=== PATIENT | female | born 2000 | race Caucasian/White ===

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

== ENCOUNTER → 2018-04-29 | Outpatient (CLI) | payer OTHER ==
--- NOTE | 2018-05-02 10:35 | CPEEG ---
[f rep st] ELECTROENCEPHALOGRAM DATE OF STUDY: 05/02/2018 Date Of Study: April 29 Date of Interpretation: 05/02. INTERPRETATION: Normal EEG during wakefulness and sleep. There were no potentially epileptogenic ab normalities present in the recording. REPORT: This EEG contains 10 Hz alpha activity to the posterior head regions. There was no abnormal activation at rest, during photic stimulation or hyperventilation. With hyperventilation, the patie nt had a normal hyperventilation built-up response composed of high amplitude rhythmic delta frequenc y activity maximal over the anterior head regions. At times, these waveforms had a notched appearanc e without any clear-cut spike component. This would be consistent with a normal hyperventilation liu ldup response. The patient went on to become drowsy and fall asleep during the study. There was no abnormal activation during drowsiness, sleep, or during times of arousal. /[id number]/MODL
== END ==
LOC: FCPNEURO 11:03
PROVIDERS: ATTEND Physician Assistant Medical
DX: R51 Headache (principal); R40.20 Unspecified coma

== ENCOUNTER → 2018-05-03 | Outpatient (CLI) | payer OTHER | LOC: FIMAGING 18:45 | PROVIDERS: ATTEND Physician Assistant Medical | DX: S06.0X9A Concussion with loss of consciousness of unspecified duration, initial encounter (principal); R51 Headache; R40.20 Unspecified coma ==

== ENCOUNTER → 2019-04-07 | Outpatient (CLI) | payer OTHER | LOC: FIMAGING 15:34 ==